=== PATIENT | female | born 1960 | race Caucasian/White ===

== ENCOUNTER → 2016-12-16 | Outpatient (CLI) | payer OTHER ==
[2016-10-25 02:46] VITALS: BP 143/82
[2016-12-16 10:36] LABS: BASO % 1 % (0-3); EOS # 0.3 x10^3/uL (0.0-0.7); EOS % 5 % (0-3); HEMATOCRIT 40.3 % (36.0-47.0); HEMOGLOBIN 13.3 g/dL (12.0-15.5); LYMPH # 1.8 x10^3/uL (1.0-4.8); LYMPH % 32 % (24-48); MEAN CORPUSCULAR HEMOGLOBIN 30 pg (25-35); MEAN CORPUSCULAR HGB CONC 33 g/dL (31-37); MEAN CORPUSCULAR VOLUME 90 fL (79-100); MONO # 0.4 x10^3/uL (0.0-1.1); MONO % 8 % (0-9); NEUT # 3.1 x10^3uL (1.8-7.7); NEUT % 55 % (31-73); PLATELET COUNT 263 x10^3/uL (140-400); RED CELL DISTRIBUTION WIDTH 13.9 % (11.5-14.5); WHITE BLOOD COUNT 5.6 x10^3/uL (4.0-11.0)
--- NOTE | 2016-12-16 10:59 | RAD ---
2 view CXR: Clinical indications: Preoperative study for surgery on shoulder. The patient is 56 years old. The left or right marker was not placed on this study but review of the previous 2 studies demonstrates the left marker on the correct side. Comparison: October 25, 2016 and May 13, 2012. Findings: No acute lung infiltrate or pleural effusion or pulmonary edema or lung mass or pneumothorax is seen. The heart size, pulmonary vasculature, mediastinum and both maryann are unremarkable. The osseous structures appear intact. Mild scoliosis is seen. Impression: No acute radiographic abnormality is seen.
--- NOTE | 2016-12-16 11:18 | EKG ---
[address] [address] Test Date: 2016-12-16 Test Time: 10:50:00 Pat Name: ROSA DAWSON Department: Room: Gender: F Extern: OUMAR: 1960 Requested By: STAFF NON Order Number: [id number] Reading MD: Measurements Intervals [place] Rate: 76 P: 63 RI: 170 QRS: 54 QRSD: 78 T: 35 QT: 388 QTc: 436 Interpretive Statements SINUS RHYTHM QRS(T) CONTOUR ABNORMALITY CONSISTENT WITH ANTEROSEPTAL INFARCT AGE UNDETERMINED ABNORMAL ECG RI6.01 Unconfirmed report No previous ECG available for comparison
[2016-12-16 11:40] LABS: SEDIMENTATION RATE 6 (0-25)
[2016-12-16 13:03] LABS: ALBUMIN 3.8 g/dL (3.4-5.0); ALBUMIN/GLOBULIN RATIO 1.2 (1.0-1.7); CREATININE 0.9 mg/dL (0.6-1.0); GFR 65.2; POTASSIUM 4.1 mmol/L (3.5-5.1); TOTAL BILIRUBIN 0.4 mg/dL (0.2-1.0); TOTAL PROTEIN 7.1 g/dL (6.4-8.2)
[2016-12-16 18:12] LABS: HEMOGLOBIN A1C 5.5 % (4.8-5.6)
== END | disposition home or self-care (01) ==
LOC: DXRAD 09:51
DX: Z01.818 Encounter for other preprocedural examination (principal)
CPT/HCPCS: 36415; 71020; 80053; 83036; 85027; 85610; 85651; 85730; 93005

== ENCOUNTER → 2017-02-02 | Outpatient (CLI) | payer OTHER ==
[2016-10-25 02:46] VITALS: BP 143/82
[2017-02-02 08:52] LABS: ALBUMIN 3.7 g/dL (3.4-5.0); ALBUMIN/GLOBULIN RATIO 1.2 (1.0-1.7); CALCIUM 8.9 mg/dL (8.5-10.1); CREATININE 0.7 mg/dL (0.6-1.0); GFR 87.2; TOTAL BILIRUBIN 0.3 mg/dL (0.2-1.0); TOTAL PROTEIN 6.8 g/dL (6.4-8.2)
[2017-02-02 23:11] LABS: CREAT RD UR 127.3 mg/dL (Not Estab.); MICRO CREAT RATIO <9.4 mg/g creat (0.0-30.0); MICROALB RD UR <12.0 ug/mL (Not Estab.)
[2017-02-03 05:13] LABS: HEMOGLOBIN A1C 5.8 % (4.8-5.6)
== END | disposition home or self-care (01) ==
LOC: LAB 07:44
PROVIDERS: ATTEND Family Medicine
DX: I10 Essential (primary) hypertension (principal); E11.9 Type 2 diabetes mellitus without complications; E78.5 Hyperlipidemia, unspecified; E55.9 Vitamin D deficiency, unspecified; Z79.899 Other long term (current) drug therapy
CPT/HCPCS: 36415; 80053; 80061; 82043; 82306; 82550; 82570; 83036

== ENCOUNTER 2017-05-05 21:02 | Emergency (ER) | payer OTHER ==
--- NOTE | 2017-05-05 21:13 | PHYS DOC ---
Past History Past Medical History: Asthma, Diabetes, High Cholesterol, Hypertension Past Medical History Thyroid Past Surgical History: Appendectomy, Cholecystectomy, Other Additional Past Surgical Histo: right shoulder surgery Past Surgical History Hemithyroidectomy Smoking: Non-smoker Alcohol Use: None Additional Alcohol Information: RN Drug Use: None Adult General HPI HPI Patient is a 56 year old female who presents with painful and bloody urine. She noticed it at 1630 PM. No fever. Some back pain. NO vomiting but nausea. She had hematuria 2 weeks ago and had an abdominal US that was negative. Her pain is minimal. Review of Systems Review of Systems Constitutional: Denies fever or chills Eyes: Denies change in visual acuity, redness, or eye pain HENT: Denies nasal congestion or sore throat Respiratory: Denies cough or shortness of breath Cardiovascular: No chest pain GI: Denies abdominal pain, nausea, vomiting, bloody stools or diarrhea : Denies dysuria or hematuria Musculoskeletal: Denies back pain or joint pain Integument: Denies rash or skin lesions Neurologic: Denies headache, focal weakness or sensory changes Endocrine: Denies polyuria or polydipsia Allergies Allergies Allergies Coded Allergies Type Severity Reaction Last Updated Verified homatropine Allergy Intermediate 10/25/16 Yes hydrocodone Allergy Intermediate 10/25/16 Yes Physical Exam Physical Exam Constitutional: Well developed, well nourished, no acute distress, non-toxic appearance. HENT: Normocephalic, atraumatic, bilateral external ears normal, oropharynx moist, no oral exudates, nose normal. Eyes: PERRLA, EOMI, conjunctiva normal, no discharge. Neck: Normal range of motion, no tenderness, supple, no stridor. Cardiovascular:Heart rate regular rhythm, no murmur Lungs & Thorax: Bilateral breath sounds clear to auscultation Abdomen: Bowel sounds normal, soft, no tenderness, no masses, no pulsatile masses. Skin: Warm, dry, no erythema, no rash. Back: No tenderness, no CVA tenderness. Extremities: No tenderness, no cyanosis, no clubbing, ROM intact, no edema. Neurologic: Alert and oriented X 3, normal motor function, normal sensory function, no focal deficits noted. Current Patient Data Vital Signs Vital Sign - Last 24 Hours 05/05/17 21:25 Temp 98.4 Pulse 76 Resp 17 Pulse Ox 95 Lab Results Laboratory Tests Test 05/05/17 21:10 Urine Collection Type Unknown Urine Color Yellow Urine Clarity Cloudy Urine pH 6.5 Urine Specific Delong 1.010 Urine Protein Neg (NEG-TRACE) Urine Glucose (UA) Neg mg/dL (NEG) Urine Ketones (Stick) Neg mg/dL (NEG) Urine Blood Large (NEG) Urine Nitrite Neg (NEG) Urine Bilirubin Neg (NEG) Urine Urobilinogen Dipstick 0.2 mg/dL (0.2 mg/dL) Urine Leukocyte Esterase Neg (NEG) Urine RBC >40 /HPF (0-2) Urine WBC 0 /HPF (0-4) Urine Squamous Epithelial Cells Few /LPF Urine Bacteria 0 /HPF (0-FEW) Course & Med Decision Making Course & Med Decision Making UA sent. 2150 PM: UA with blood only. No evidence of infection. Offered further work up such as CT scan but she just had the work up 2 weeks ago by PCP and the US showed no kidney stone. She declines any further evaluation. Her pain is minimal. She needs a urology referral-none here. Will place on flomax, zofran, naprosyn Dragon Disclaimer Dragon Disclaimer This chart was dictated in whole or in part using Voice Recognition software in a busy, high-work load, and often noisy Emergency Department environment. It may contain unintended and wholly unrecognized errors or omissions. Departure Departure: Impression: Primary Impression: Hematuria Disposition: 01 HOME, SELF-CARE Condition: STABLE Referrals: TYRELL HUI MD (PCP) Patient Instructions: Hematuria, Adult Additional Instructions: YOU NEED TO SEE A UROLOGIST FOR YOUR HEMATURIA. YOU CAN CALL DR TRISH ELKINS [id number], [place] [address] BUT YOU NEED TO CHECK IF HE IS ON YOUR INSURANCE PLAN Scripts Ondansetron (ZOFRAN ODT) 8 Mg Tab.rapdis 8 MG PO PRN Q6-8HRS Y for VOMITING, #10 Prov: HUI JOHN MD 05/05/17 Naproxen (NAPROSYN) 500 Mg Tablet 1 TAB PO BID, #30 TAB 1 Refill Prov: HUI JOHN MD 05/05/17 Tamsulosin Hcl (FLOMAX) 0.4 Mg Cap.er.24h 1 CAP PO DAILY, #10 CAP 11 Refills Prov: HUI JOHN MD 05/05/17 Problem Qualifiers Primary Impression: Hematuria Hematuria type: other microscopic Qualified Codes: R31.29 - Other microscopic hematuria HUI JOHN MD May 05, 2017 21:13
[2017-05-05 21:25] VITALS: BP 196/115
[2017-05-05 21:38] LABS: BACTERIA,URINE 0 /HPF (0-FEW); BILIRUBIN,URINE NEG (NEG); CLARITY,URINE CLOUDY; COLOR,URINE YELLOW; GLUCOSE,URINE NEG (NEG); NITRITE,URINE NEG (NEG); RBC,URINE >40 /HPF (0-2); UROBILINOGEN,URINE 0.2 mg/dL (0.2 mg/dL); WBC,URINE 0 /HPF (0-4)
[2017-05-05 21:39] LABS: SQUAMOUS EPITHELIAL CELL,UR FEW /LPF
[2017-05-05] MEDS ORDERED: ONDA8TAB12 PO (21:58)
[2017-05-05] MEDS ORDERED: NAPR500T PO (21:58)
[2017-05-05] MEDS ORDERED: TAMS0.4C97 PO (21:58)
[2017-05-05] MEDS ORDERED: TAMSULOSIN 0.4 MG CAP.ER.24H. PO ONE (22:15)
[2017-05-05] MEDS ORDERED: NAPROXEN 500 MG TABLET PO ONE (22:15)
== END 2017-05-05 22:31 | disposition home or self-care (01) ==
LOC: ER 21:02
DX: R31.29 Other microscopic hematuria (principal); M54.9 Dorsalgia, unspecified; E78.00 Pure hypercholesterolemia, unspecified; I10 Essential (primary) hypertension; E11.9 Type 2 diabetes mellitus without complications; J45.909 Unspecified asthma, uncomplicated; Z88.5 Allergy status to narcotic agent; Z88.8 Allergy status to other drugs, medicaments and biological substances
CPT/HCPCS: 81001; 99283

== ENCOUNTER 2017-06-18 12:02 | Emergency (ER) | payer OTHER ==
[~2017-06-18] VITALS: Ht 157.5 cm; Wt 60.8 kg
[~2017-06-18 12:02] MED LIST changes: -FAMOTIDINE 20 MG/2 ML VIAL IVP ONE; -IOHEXOL 300 MG/ML 75 ML VIAL. IV ONE; -PRED20TA PO; -diphenhydrAMINE 50 MG/ML VIAL IVP ONE; -methylPREDNISolone SOD SUCC PF 125 MG/2 ML VIAL. IV ONE
[2017-06-18] MEDS ORDERED: IPRATRPIUM/ALBUTEROL 0.5/2.5MG 3 ML NEBU. ONE (12:22)
[2017-06-18 12:41] VITALS: BP 137/82
[2017-06-18] MEDS ORDERED: PRED20TA PO (13:52)
--- NOTE | 2017-06-18 14:02 | PHYS DOC ---
General Chief Complaint: ALLERGIC REACTION Stated Complaint: ALLERGIC REACTION Time Seen by MD: 13:51 Source: patient, RN/MD Exam Limitations: no limitations Problems: History of Present Illness Initial Comments Call down to radiology by computer systems technology instructor due to possible allergic reaction. Patient is a 56-year-old female who was in the CT having just received IV contrast for an outpatient study. Once contrast was infused the patient began to sneeze, she began to complain of itching and the tech came to ask for assistance immediately. Medic and I went to radiology and found the patient to be turning red and complaining of itching, further questioning revealed that she felt as if her throat was scratchy and tight. IV medications were ordered and an RN then went to radiology to monitor the patient to the remainder of the study. The patient was registered as a patient brought to the floor for observation, while on the table in CT she did receive Solu-Medrol 125 mg, Benadryl 25 mg, and Pepcid 20 mg. Shortly after receiving medications her itching stopped and her symptoms resolved completely within a few moments. ED vital signs are stable. Patient is an RN. Timing/Duration: momentarily Severity: severe Modifying Factors: worse with medication Associated Symptoms: other Allergies: Coded Allergies: homatropine (Verified Allergy, Intermediate, 05/05/17) hydrocodone (Verified Allergy, Intermediate, 05/05/17) oxycodone (Verified Allergy, Intermediate, 05/05/17) iohexol (Verified Allergy, Unknown, Shortness of Air, 06/18/17) Past Medical History Medical History: other (asthma, diabetes, hypertension, hyperlipidemia) Surgical History: noncontributory Social History Smoker: non-smoker Alcohol: none Drugs: none Review of Systems Constitutional: denies chills, denies diaphoresis, denies fever, denies malaise EENTM: see HPI Respiratory: see HPI Cardiovascular: denies chest pain, denies palpitations, denies syncope Gastrointestinal: denies nausea, denies vomiting Musculoskeletal: denies back pain, denies joint swelling Skin: see HPI Immunological/Allergic: see HPI Physical Exam General Appearance: WD/WN, moderate distress Eyes: bilateral eye normal inspection, bilateral eye PERRL, bilateral eye EOMI Ear, Nose, Throat: other (skin of the face is red but there is no soft tissue swelling noted, airway is patent no stridor) Neck: full range of motion, supple Respiratory: lungs clear, normal breath sounds Back: no CVA tenderness, no vertebral tenderness Extremities: non-tender, normal inspection Neurologic/Psychiatric: program management professional II-XII nml as tested, no motor/sensory deficits, alert, normal mood/affect, oriented x 3 Skin: warm/dry (warm red urticarial rash over entire skin surface) Orders, Labs, Meds The patient was monitored for 90 minutes she had no new or progressive symptoms but continued to improve. Upon discharge I discussed her diabetes and the steroids and the need for close glycemic monitoring. I also discussed outpatient medications and close primary care follow-up on Wednesday. It was necessary for the patient to find a ride home as she had Benadryl IV and was very lethargic. Her vital signs were stable rash resolved no further itching no further throat symptoms upon discharge. Departure Time of Disposition: 13:53 Disposition: 01 HOME, SELF-CARE Diagnosis: IV contrast allergic reaction Condition: IMPROVED Patient Instructions: Drug Allergy, Bwwm-cm-Yley Additional Instructions: Always list IV contrast as an allergy moving forward. Rest, no strenuous activity. No driving or operating machinery while sedated with medications. Take OTC pepcid and benadryl while taking benadryl. Rx: prednisone Follow up with your doctor Wednesday as scheduled. Return to ED with new or changing symptoms. TRISH BOWIE DO Jun 18, 2017 14:02
== END 2017-06-18 14:07 | disposition home or self-care (01) ==
LOC: ER 12:02
DX: L29.9 Pruritus, unspecified (principal); R09.89 Other specified symptoms and signs involving the circulatory and respiratory systems; T50.8X5A Adverse effect of diagnostic agents, initial encounter; J45.909 Unspecified asthma, uncomplicated; E11.9 Type 2 diabetes mellitus without complications; I10 Essential (primary) hypertension; E78.5 Hyperlipidemia, unspecified; Z88.5 Allergy status to narcotic agent; Z88.8 Allergy status to other drugs, medicaments and biological substances; Z91.041 Radiographic dye allergy status; Y92.89 Other specified places as the place of occurrence of the external cause
CPT/HCPCS: 94640; 99283-25; 99284-25

== ENCOUNTER → 2017-06-18 | Outpatient (CLI) | payer OTHER ==
[~2017-06-18] MED LIST: FAMOTIDINE 20 MG/2 ML VIAL IVP ONE; IOHEXOL 300 MG/ML 75 ML VIAL. IV ONE; NAPR500T PO; ONDA8TAB12 PO; PRED20TA PO; TAMS0.4C97 PO; diphenhydrAMINE 50 MG/ML VIAL IVP ONE; methylPREDNISolone SOD SUCC PF 125 MG/2 ML VIAL. IV ONE
[2017-06-18 11:29] LABS: CREATININE 0.8 mg/dL (0.6-1.0); GFR 74.7
--- NOTE | 2017-06-18 15:08 | RAD ---
Indication hematuria. Multiphase imaging through the abdomen was performed. Initially noncontrast imaging through the abdomen and pelvis was performed. This was followed by late portal venous phase imaging through the kidneys. Finally delayed images through the abdomen and pelvis were obtained. Approximately 75 cc of Omnipaque 300 was administered intravenously. No oral contrast was administered. It was communicated to me (I was off site) that the patient had a reaction to the IV contrast material. This was managed by emergency room personnel. No prior imaging of the abdomen or pelvis is available. On the initial noncontrast images no renal calculi or abnormality is seen associated with either kidney. There is no hydronephrosis hydroureter or definite calcification seen along the course of either ureter. There are numerous calcifications in the pelvis compatible with phleboliths. The portal venous phase images are unremarkable and show no renal mass. The delayed images similarly demonstrate normal kidneys. The ureters appear normal in their course and caliber although the entire right ureter is not visualized. No definite abnormality is seen associated with the urinary bladder. The lung bases are clear. Liver and spleen appear unremarkable apart from occasional very small, subcentimeter, masses in the liver probably reflecting tiny incidental cysts.. Clips are noted in the gallbladder fossa. No pancreatic abnormality is seen. There are occasional calcifications seen associated with the uterus compatible with calcified uterine fibroids. Acute or definite significant finding in the pelvis is not seen. IMPRESSION: No acute finding seen in the abdomen or pelvis. No abnormality seen involving the kidneys or ureters. The urinary bladder appeared grossly normal. Reported contrast reaction. PQRS Compliance Statement: One or more of the following individualized dose reduction techniques were utilized for this examination: 1. Automated exposure control 2. Adjustment of the mA and/or kV according to patient size 3. Use of iterative reconstruction technique
== END | disposition home or self-care (01) ==
LOC: CT 10:04
PROVIDERS: ATTEND Urology
DX: R31.0 Gross hematuria (principal); N85.8 Other specified noninflammatory disorders of uterus
CPT/HCPCS: 36415; 74178; 82565; Q9967

== ENCOUNTER → 2017-08-21 | Outpatient (CLI) | payer OTHER ==
[~2017-08-21] MED LIST changes: +NAPR-683 PO; -NAPR500T PO; +PRED20TA PO
[2017-08-21 12:13] LABS: ALBUMIN/GLOBULIN RATIO 1.4 (1.0-1.7); CALCIUM 9.1 mg/dL (8.5-10.1); CREATININE 0.8 mg/dL (0.6-1.0); GFR 74.5; POTASSIUM 3.6 mmol/L (3.5-5.1); TOTAL BILIRUBIN 0.4 mg/dL (0.2-1.0); TOTAL PROTEIN 6.9 g/dL (6.4-8.2)
[2017-08-22 00:06] LABS: MICRO CREAT RATIO 6.7 mg/g creat (0.0-30.0); MICROALB RD UR 18.7 ug/mL (Not Estab.)
[2017-08-22 02:06] LABS: HEMOGLOBIN A1C 6.1 % (4.8-5.6)
== END | disposition home or self-care (01) ==
LOC: LAB 11:37
PROVIDERS: ATTEND Family Medicine
DX: E11.9 Type 2 diabetes mellitus without complications (principal); E78.5 Hyperlipidemia, unspecified; I10 Essential (primary) hypertension; E55.9 Vitamin D deficiency, unspecified; Z79.899 Other long term (current) drug therapy
CPT/HCPCS: 36415; 80053; 80061; 82043; 82306; 82550; 82570; 83036

== ENCOUNTER 2017-10-29 11:57 | Emergency (ER) | payer OTHER ==
[~2017-10-29] VITALS: Ht 157.5 cm; Wt 61.2 kg
[2017-10-29] MEDS ORDERED: METH4TAB2 PO (12:30)
[2017-10-29] MEDS ORDERED: CYCL5TAB PO (12:30)
[2017-10-29] MEDS ORDERED: ACET-704 PO (12:30)
--- NOTE | 2017-10-29 12:30 | PHYS DOC ---
Past History Past Medical History: Asthma, Depression, Diabetes, GERD, High Cholesterol, Hypertension Past Surgical History: Appendectomy, Cholecystectomy, Other Additional Past Surgical Histo: right shoulder surgery Smoking: Non-smoker Alcohol Use: None Drug Use: None Adult General Chief Complaint Chief Complaint: back and shoulder pain [facility] HPI 57-year-old right-handed female patient state she plans to move to a new house and painted her new house for the last 4 days with rushing to finish the job. Patient complaining of pain in right scapular area with radiation to shoulder and complaining of fourth and fifth finger paresthesia for the last couple days as a constant problem that waking her up during night. Patient denies weakness of her hand. Patient states she took ibuprofen and Ultram and Flexeril without improvement of her pain and numbness. Review of Systems Review of Systems Constitutional: Denies fever or chills [] Eyes: Denies change in visual acuity, redness, or eye pain [] HENT: Denies nasal congestion or sore throat [] Respiratory: Denies cough or shortness of breath [] Cardiovascular: No additional information not addressed in HPI [] GI: Denies abdominal pain, nausea, vomiting, bloody stools or diarrhea [] : Denies dysuria or hematuria [] Musculoskeletal: Reports back pain and joint pain Integument: Denies rash or skin lesions [] Neurologic: Denies headache, focal weakness , reports sensory changes [] Endocrine: Denies polyuria or polydipsia [] All other systems were reviewed and found to be within normal limits, except as documented in this note. Allergies Allergies Allergies Coded Allergies Type Severity Reaction Last Updated Verified homatropine Allergy Intermediate 05/05/17 Yes hydrocodone Allergy Intermediate 05/05/17 Yes oxycodone Allergy Intermediate 05/05/17 Yes iohexol Allergy Unknown Shortness of Air 06/18/17 Yes Physical Exam Physical Exam Constitutional: Well developed, well nourished, mild distress, non-toxic appearance. [] HENT: Normocephalic, atraumatic, bilateral external ears normal, oropharynx moist, no oral exudates, nose normal. [] Eyes: PERRLA, EOMI, conjunctiva normal, no discharge. [] Neck: Normal range of motion, no tenderness, supple, no stridor. [] Cardiovascular:Heart rate regular rhythm, no murmur [] Lungs & Thorax: Bilateral breath sounds clear to auscultation [] Abdomen: Bowel sounds normal, soft, no tenderness, no masses, no pulsatile masses. [] Skin: Warm, dry, no erythema, no rash. [] Back: No tenderness, no CVA tenderness. [] Extremities: No tenderness, no cyanosis, no clubbing, ROM intact, no edema, right shoulder without deformity, normal range of motion. [] Neurologic: Alert and oriented X 3, normal motor function, subjective paresthesia of right fourth and fifth finger, no focal deficits noted. [] Psychologic: Affect normal, judgement normal, mood normal. [] Current Patient Data Vital Signs Vital Signs Date Time Temp Pulse Resp B/P (MAP) Pulse Ox O2 Delivery O2 Flow Rate FiO2 10/29/17 11:57 98.0 81 18 97 Room Air EKG EKG [] Radiology/Procedures Radiology/Procedures [] Course & Med Decision Making Course & Med Decision Making Evaluation of patient in ER showed 57-year-old female patient with severe physical activity of right hand for the last 3 days and complaining of pain and numbness of fingers. Patient had unremarkable physical exam except for subjective paresthesias. Patient did not want to have x-ray. Plan discharge patient home with prescription of Medrol Dosepak and Tylenol 3 and Flexeril and instruction to avoid of physical activity and follow with her primary care physician for possible physical therapy. discharge: I've spoken with the patient and/or caregivers. I've explained the patient's condition, diagnosis and treatment plan based on information available to me at this time. I've answered the patient's and/or caregivers questions and addressed any concerns. The patient and/or caregivers have a good understanding the patient's diagnosis, condition and treatment plan as can be expected at this point. Vital signs have been stabilized. The patient's condition is stable for discharge from the emergency department. The patient will pursue further outpatient evaluation with her primary care provider or other designated consulting physician as outlined in the discharge instructions. Patient and/or caregivers are agreeable to this plan of care and follow-up instructions have been explained in detail. The patient and/or caregivers have received these instructions in written format and expressed understanding of these discharge instructions. The patient and her caregivers are aware that if any significant change in condition or worsening of symptoms should prompt him to immediately return to this of the closest emergency department. If an emergent department is not readily available I would encourage him to call 911. Earlene Disclaimer Dragon Disclaimer This electronic medical record was generated, in whole or in part, using a voice recognition dictation system. Departure Departure: Impression: Primary Impression: Paresthesia Additional Impression: Sprain of shoulder, right Disposition: HOME, SELF-CARE (At 1227) Condition: STABLE Referrals: TYRELL HUI MD (PCP) Patient Instructions: Shoulder Sprain Additional Instructions: Apply ice on the affected area Follow-up with your primary care physician in 3-5 days Return to ER if not getting better Scripts Acetaminophen With Codeine (TYLENOL WITH CODEINE #3 TABLET) 1 Each Tablet 1 TAB PO Q6HRS, #30 TAB Prov: JONATHAN BURRELL MD 10/29/17 Cyclobenzaprine Hcl (CYCLOBENZAPRINE HCL) 5 Mg Tablet 1 TAB PO TID, #30 TAB Prov: JONATHAN BURRELL MD 10/29/17 Methylprednisolone (MEDROL) 4 Mg Tab.ds.pk 1 PKG PO UD, #1 PKG Prov: JONATHAN BURRELL MD 10/29/17 Problem Qualifiers JONATHAN BURRELL MD Oct 29, 2017 12:30
[2017-10-29 12:44] VITALS: BP 153/93
== END 2017-10-29 12:45 | disposition home or self-care (01) ==
LOC: ER 11:57
DX: S43.401A Unspecified sprain of right shoulder joint, initial encounter (principal); M54.9 Dorsalgia, unspecified; R20.2 Paresthesia of skin; J45.909 Unspecified asthma, uncomplicated; K21.9 Gastro-esophageal reflux disease without esophagitis; E78.00 Pure hypercholesterolemia, unspecified; I10 Essential (primary) hypertension; E11.9 Type 2 diabetes mellitus without complications; F32.9 Major depressive disorder, single episode, unspecified; Z98.890 Other specified postprocedural states; Z88.5 Allergy status to narcotic agent; Z88.8 Allergy status to other drugs, medicaments and biological substances; Z91.041 Radiographic dye allergy status; X58.XXXA Exposure to other specified factors, initial encounter; Y93.89 Activity, other specified; Y99.8 Other external cause status; Y92.89 Other specified places as the place of occurrence of the external cause
CPT/HCPCS: 99283

== ENCOUNTER 2018-01-08 16:24 | Emergency (ER) | payer OTHER ==
[~2018-01-08] VITALS: Ht 157.5 cm; Wt 68.0 kg
[2018-01-08 16:24] VITALS: BP 143/92
[~2018-01-08 16:24] MED LIST changes: +ACET-704 PO; +CYCL5TAB PO; +METH4TAB2 PO
--- NOTE | 2018-01-10 00:22 | ED.ADGEN ---
Past History Past Medical History: Asthma, Depression, Diabetes, GERD, High Cholesterol, Hypertension Past Surgical History: Appendectomy, Cholecystectomy, Other Additional Past Surgical Histo: right shoulder surgery Smoking: Non-smoker Alcohol Use: None Drug Use: None Adult General Chief Complaint Chief Complaint Cough, shortness of breath HPI HPI Patient is a 57-year-old female with history of cough mediated asthma who presents with persistent dry nonproductive cough for the past 2 weeks. Patient reports mild dyspnea. No fever chills, sore throat, nausea vomiting or sweats. No increased leg pain or swelling. No chest pain, chest tightness, leg pain or swelling. Patient is a nonsmoker. States she has had similar episodes related to asthma flareup. Patient currently on nasal steroid, Singulair and allergy medications. States she is taken prior without relief. Denies other acute symptoms or complaints.] Review of Systems Review of Systems Review symptoms as per history of present illness. All other review symptoms are negative. All other systems were reviewed and found to be within normal limits, except as documented in this note. Allergies Allergies Allergies Coded Allergies Type Severity Reaction Last Updated Verified homatropine Allergy Intermediate 05/05/17 Yes hydrocodone Allergy Intermediate 05/05/17 Yes oxycodone Allergy Intermediate 05/05/17 Yes iohexol Allergy Unknown Shortness of Air 06/18/17 Yes Physical Exam Physical Exam Constitutional: Well developed, well nourished, no acute distress. [] HENT: Normocephalic, atraumatic, bilateral external ears normal, oropharynx moist, no oral exudates, nose, mucosal edema with clear rhinorrhea. [] Eyes: PERRLA, EOMI, conjunctiva normal, no discharge. [] Neck: Normal range of motion, no tenderness, supple, no stridor. [] Cardiovascular:Heart rate regular rhythm, no murmur [] Lungs & Thorax: Patient's mildly diminished, otherwise clear. Persistent dry hacking cough.[] Neurologic: Alert and oriented X 3, normal motor function, normal sensory function, no focal deficits noted. [] Psychologic: Affect normal, judgement normal, mood normal. [] Current Patient Data Vital Signs Vital Signs Date Time Temp Pulse Resp B/P (MAP) Pulse Ox O2 Delivery O2 Flow Rate FiO2 01/08/18 16:24 98.6 108 20 96 Room Air EKG EKG [] Radiology/Procedures Radiology/Procedures [] Course & Med Decision Making Course & Med Decision Making Pertinent Labs and Imaging studies reviewed. (See chart for details) [Suspect cough mediated asthma with concern for atypical bacterial infection. Lung sounds clear, no hypoxia. Will treat supportively with close PCP follow- up. Return precautions reviewed.] Final Impression Final Impression [1. Acute bronchospasm 2. h/o asthma] Problems: Dragon Disclaimer Dragon Disclaimer This electronic medical record was generated, in whole or in part, using a voice recognition dictation system. EILEEN WRIGHT DO January 10, 2018 00:22
== END 2018-01-08 17:00 | disposition home or self-care (01) ==
LOC: ER 16:24
DX: J98.01 Acute bronchospasm (principal); J45.909 Unspecified asthma, uncomplicated; F32.9 Major depressive disorder, single episode, unspecified; E11.9 Type 2 diabetes mellitus without complications; K21.9 Gastro-esophageal reflux disease without esophagitis; E78.00 Pure hypercholesterolemia, unspecified; I10 Essential (primary) hypertension; Z88.5 Allergy status to narcotic agent; Z88.8 Allergy status to other drugs, medicaments and biological substances; Z91.041 Radiographic dye allergy status
CPT/HCPCS: 99283

== ENCOUNTER → 2018-01-10 | Outpatient (CLI) | payer OTHER ==
[2018-01-08 16:24] VITALS: BP 143/92
--- NOTE | 2018-01-11 09:17 | RAD ---
Chest, 2 views, 01/10/2018: HISTORY: Cough and congestion The heart size is normal. The lungs are clear. There is no evidence of pleural fluid. There is a minimal thoracolumbar scoliosis with scattered spurs. IMPRESSION: No acute cardiopulmonary abnormality is detected. Paranasal sinuses, single view, 01/10/2018: A single Bueno' view of the sinuses reveals well aerated maxillary and frontal sinuses. No specific abnormality is identified on this limited exam. Electronically signed by: Titus Asif MD (01/11/2018 9:14 AM) [facility]
== END | disposition home or self-care (01) ==
LOC: DXRAD 15:58
PROVIDERS: ATTEND Family Medicine
DX: R05 Cough (principal); E55.9 Vitamin D deficiency, unspecified; I10 Essential (primary) hypertension; E11.9 Type 2 diabetes mellitus without complications; E78.00 Pure hypercholesterolemia, unspecified; J45.909 Unspecified asthma, uncomplicated
CPT/HCPCS: 70210; 71046

== ENCOUNTER → 2018-03-11 | Outpatient (CLI) | payer OTHER ==
[2018-03-11 13:45] LABS: ALBUMIN/GLOBULIN RATIO 1.2 (1.0-1.7); CALCIUM 9.3 mg/dL (8.5-10.1); CREATININE 0.8 mg/dL (0.6-1.0); GFR 74.5; POTASSIUM 3.2 mmol/L (3.5-5.1); TOTAL BILIRUBIN 0.6 mg/dL (0.2-1.0); TOTAL PROTEIN 7.3 g/dL (6.4-8.2)
[2018-03-12 02:11] LABS: HEMOGLOBIN A1C 6.4 % (4.8-5.6)
[2018-03-12 06:11] LABS: MICRO CREAT RATIO <25.0 mg/g creat (0.0-30.0); MICROALB RD UR <3.0 ug/mL (Not Estab.)
== END | disposition home or self-care (01) ==
LOC: LAB 09:52
PROVIDERS: ATTEND Family Medicine
DX: I10 Essential (primary) hypertension (principal); E11.9 Type 2 diabetes mellitus without complications; E78.5 Hyperlipidemia, unspecified; E55.9 Vitamin D deficiency, unspecified; E78.00 Pure hypercholesterolemia, unspecified; K21.9 Gastro-esophageal reflux disease without esophagitis; Z79.899 Other long term (current) drug therapy
CPT/HCPCS: 36415; 80053; 80061; 82043; 82570; 83036